=== PATIENT | male | born 1965 | race Two or more races ===

== ENCOUNTER 2020-01-21 17:41 | Emergency (ER) | payer OTHER ==
[~2020-01-21] VITALS: Ht 170.2 cm; Wt 79.5 kg
[2020-01-21] MEDS ORDERED: IBUP-2271 PO (17:56)
[2020-01-21] MEDS ORDERED: ACET-66 PO (17:56)
[2020-01-21] MEDS ORDERED: SODIUM CHLORIDE 0.9% 1,000 ML IV ONE (18:15)
[2020-01-21] MEDS ORDERED: ACETAMINOPHEN 500 MG TABLET PO ONE (18:15)
[2020-01-21 19:02] LABS: BASOPHILS % (AUTO) 0.1 % (0.0-2.0); EOSINOPHILS % (AUTO) 0 % (1.0-6.0); HEMATOCRIT 38.1 % (41-53); HEMOGLOBIN 12.8 g/dL (13.5-17.5); LYMPHOCYTES % (AUTO) 9.2 % (22.0-44.0); MEAN CORPUSCULAR HEMOGLOBIN 27.2 pg (26.0-34.0); MEAN CORPUSCULAR HGB CONC 33.5 G/dL (31.0-37.0); MEAN CORPUSCULAR VOLUME 81 fL (80-100); MONOCYTES # (AUTO) 0.6 K/uL (0.1-1.0); MONOCYTES % (AUTO) 5.1 % (2.0-9.0); NEUTROPHILS # (AUTO) 9.4 K/uL (1.8-7.7); PLATELET COUNT (AUTO) 238 K/uL (150-450); RED CELL DISTRIBUTION WIDTH 13.7 % (11.5-14.5)
[2020-01-21 19:08] LABS: NEUTROPHILS % (AUTO) 85.6 % (40.0-70.0)
[2020-01-21 19:14] LABS: ANION GAP 3 mmol/L (8-16); CALCIUM, TOTAL 8.2 mg/dL (8.8-10.5); CARBON DIOXIDE 31 mmol/L (22-29); CHLORIDE 98 mmol/L (98-107); CREATININE 1.16 mg/dL (0.60-1.30); GLOMERULAR FILTR. RATE CALC > 60 mL/min (>60); GLUCOSE,RANDOM 108 mg/dL (70-110); POTASSIUM 4.2 mmol/L (3.5-5.1); SODIUM SERUM 132 mmol/L (136-145); UREA NITROGEN, BLOOD 16 mg/dL (7-18)
[2020-01-21 19:34] LABS: PLATELET MORPHOLOGY COMMENT NORMAL
[2020-01-21 20:22] VITALS: BP 113/56
[2020-01-21 20:55] LABS: INFLUENZA TYPE A NEGATIVE FOR TYPE A (NEGATIVE)
[2020-01-21 20:56] LABS: INFLUENZA TYPE B NEGATIVE FOR TYPE B (NEGATIVE)
[2020-01-21 21:46] LABS: APPEARANCE,URINE CLEAR (CLEAR); BILIRUBIN,URINE NEGATIVE (NEGATIVE); GLUCOSE, URINE (UA) NEGATIVE (NEGATIVE); KETONES,URINE NEGATIVE (NEGATIVE); LEUKOCYTE ESTERASE ,URINE NEGATIVE (NEGATIVE); NITRATE,URINE NEGATIVE (NEGATIVE); OCCULT BLOOD,URINE NEGATIVE (NEGATIVE); PH,URINE 7.5 (5.0-8.0); PROTEIN,URINE POS 1+ (NEGATIVE)
[2020-01-21 21:51] LABS: BACTERIA,URINE Rare /HPF (None Seen); RBC,URINE 0-2 /HPF (0-2); SQUAMOUS EPITHELIAL CELL,UR Rare /LPF (None Seen); WBC,URINE 0-2 /HPF (0-5)
== END 2020-01-21 20:50 | disposition home or self-care (01) ==
LOC: EMS 17:41
DX: R50.9 Fever, unspecified (principal); M79.18 Myalgia, other site; F12.90 Cannabis use, unspecified, uncomplicated; F17.210 Nicotine dependence, cigarettes, uncomplicated; Z88.0 Allergy status to penicillin; Z79.899 Other long term (current) drug therapy
CPT/HCPCS: 87804

== ENCOUNTER 2025-08-03 03:22 | Emergency (ER) | payer OTHER ==
[~2025-08-03] VITALS: Ht 172.7 cm; Wt 76.4 kg
[~2025-08-03 03:22] MED LIST: ACET-3385 PO; IBUP-45 PO
[2025-08-03] MEDS: KETOROLAC TROMETHAMINE 30 MG/ML VIAL IM ONE (04:40)
[2025-08-03] MEDS ORDERED: TRAM50TA5 PO (04:56)
[2025-08-03 05:00] VITALS: BP 141/85; PULSE 71; RESP 18; TEMP 97.3; O2SAT 98
== END 2025-08-03 05:02 | disposition home or self-care (01) ==
LOC: EMS 03:22
DX: G56.03 Carpal tunnel syndrome, bilateral upper limbs (principal); R20.0 Anesthesia of skin; F17.210 Nicotine dependence, cigarettes, uncomplicated; F12.90 Cannabis use, unspecified, uncomplicated; Z79.899 Other long term (current) drug therapy; Z88.0 Allergy status to penicillin
CPT/HCPCS: 99283; 73110 ×2; 96372; J1885